=== PATIENT | female | born 1945 | race Caucasian/White ===

== ENCOUNTER → 2021-02-06 11:21 | Outpatient (CLI) | payer MEDICARE, SELFPAY ==
--- NOTE | ~2021-02-06 | XR_ITS ---
EXAMINATION: XR lumbar spine 2-3V DATE: 02/06/2021 11:54 INDICATION: Low back pain TECHNIQUE: Anteroposterior and lateral views of the lumbar spine, and cone-down lateral view of the l umbosacral junction were obtained. COMPARISON: None. FINDINGS: There are 2 mm of anterolisthesis of L3 on L4, 4 mm of anterolisthesis of L4 on L5, and 2 m m of retrolisthesis of L5 on S1. There is moderate loss of intervertebral disc space height at L5-S1. Mild loss of intervertebral disc space height is present throughout the remainder of the lumbar spin e. The vertebral body heights are maintained. There is no fracture. Severe facet osteoarthritis is no tess in the lower lumbar spine. There is calcified atherosclerosis. IMPRESSION: 1. Moderate to severe lumbar spondylosis without acute findings. Reviewed, dictated and finalized at location B.
--- NOTE | ~2021-02-06 | XR_ITS ---
EXAMINATION: XR thoracic spine 3V DATE: 02/06/2021 11:54 INDICATION: Back pain TECHNIQUE: AP, lateral and lateral swimmer's views of the thoracic spine were obtained. COMPARISON: None. FINDINGS: The bones are osteopenic which limits the sensitivity for fracture however none is seen. Th ere is moderate loss of intervertebral disc space height at multiple levels in the mid and upper thor acic spine. The vertebral body heights are maintained. Small degenerative osteophytes project from th e anterior endplates of multiple vertebral bodies. Median sternotomy wires and mediastinal surgical c lips are seen, likely from prior coronary artery bypass grafting. Severe lower cervical spondylosis i s incidentally noted. IMPRESSION: 1. Moderate thoracic spondylosis without acute findings. Reviewed, dictated and finalized at location B.
== END ==
PROVIDERS: PCP Internal Medicine; Visit Provider Internal Medicine
DX: M47.894 Other spondylosis, thoracic region (principal); M47.896 Other spondylosis, lumbar region
CPT/HCPCS: 72072; 72100

== ENCOUNTER 2023-04-15 12:22 | Emergency (ER) | payer MEDICARE, SELFPAY ==
--- NOTE | 2023-04-15 12:23 | ED.FEMALEGU ---
HPI - Female Genitourinary General Chief complaint: Urogenital-Female Stated complaint: Female Urogenital Time Seen by Provider: 04/15/23 12:34 Source: patient, RN notes reviewed and old records reviewed Mode of arrival: ambulatory Limitations: no limitations History of Present Illness HPI Narrative: 77-year-old presents to the [facility] with 2 days of burning with urination. States that she has her pain due to previous shingles right vaginal. States the pain is different also states she has had some frequency. Denies pain. No CVA tenderness. Denies fevers. Denies nausea vomiting Related Data Home Medications Medication Instructions Recorded Confirmed albuterol 90 mcg/actuation aerosol 90 mcg inhalation PRN PRN 04/15/23 04/15/23 inhaler Shortness Of Breath Or Wheezing anastrozole 1 mg tablet 1 mg PO DAILY 04/15/23 04/15/23 aspirin 81 mg tablet,delayed 81 mg PO DAILY 04/15/23 04/15/23 release atenolol 25 mg tablet 25 mg PO DAILY 04/15/23 04/15/23 atorvastatin 40 mg tablet 40 mg PO HS 04/15/23 04/15/23 biotin 5,000 mcg disintegrating 5,000 mcg PO DAILY 04/15/23 04/15/23 tablet budesonide-formoterol HFA 160 2 inh inhalation PRN PRN Shortness 04/15/23 04/15/23 mcg-4.5 mcg/actuation aerosol Of Breath Or Wheezing inhaler (Symbicort) cholecalciferol (vitamin D3) 50 50 mcg PO DAILY 04/15/23 04/15/23 mcg (2,000 unit) capsule (Vitamin D3) clopidogrel 75 mg tablet 75 mg PO DAILY 04/15/23 04/15/23 ezetimibe 10 mg tablet 10 mg PO DAILY 04/15/23 04/15/23 polyethylene glycol 3350 17 gram 17 g PO HS 04/15/23 04/15/23 oral powder packet (Miralax) telmisartan 40 0.5 tablet PO DAILY 04/15/23 04/15/23 mg-hydrochlorothiazide 12.5 mg tablet Allergies Allergy/AdvReac Type Severity Reaction Status Date / Time erythromycin base AdvReac Intermediate Gastrointestinal Verified 04/15/23 12:24 Upset hydrocodone AdvReac Intermediate Gastrointestinal Verified 04/15/23 12:24 Upset oxycodone AdvReac Intermediate Gastrointestinal Verified 04/15/23 12:24 Upset eucalyptus AdvReac Mild Hives Verified 04/15/23 12:24 menthol AdvReac Mild Hives Verified 04/15/23 12:24 mold AdvReac Mild Hives Verified 04/15/23 12:24 Review of Systems Review of Systems: All systems reviewed & are unremarkable except as noted in HPI and below Constitutional: Constitutional: Reports no additional constitutional complaints Eyes: Eyes: Reports no additional eye complaints ENT: Reports system reviewed and no additional complaints, except as documented Cardiovascular: Cardiovascular: Reports no additional cardiovascular complaints, Denies chest pain and Denies dyspnea Respiratory: Respiratory: Reports no additional respiratory complaints, Denies chest congestion, Denies cough and Denies dyspnea Gastrointestinal: Gastrointestinal: Reports no additional gastrointestinal complaints, Denies abdominal pain, Denies nausea and Denies vomiting Genitourinary: Genitourinary: Reports as per HPI Musculoskeletal: Musculoskeletal: Reports no additional musculoskeletal complaints Integumentary/Breasts: Skin/Breast: Reports system reviewed and no additional complaints, except as docu Neurologic: Reports system reviewed and no additional complaints, except as documented Psychiatric: Psychiatric: Reports no additional psychiatric complaints Allergic/Immunologic: Allergic/Immunologic: Reports no additional allergic/immunologic complaints [facility] Past Medical History Medical History History of breast cancer History of colon cancer History of OR (myocardial infarction) Surgical History Surgical History (Updated 04/15/23 @ 18:24 by Leela Donohue APRN) H/O heart artery stent History of colon resection History of heart bypass surgery History of left mastectomy Comments At the time of my signature, I reviewed and agree with the nursing past medical, surgical, social, and family histo
[2023-04-15 12:38] VITALS: BP 152/65; PULSE 58; RESP 16; TEMP 36.4; O2SAT 100
== END 2023-04-15 12:45 | disposition home or self-care (01) ==
PROVIDERS: Emergency Provider Nurse Practitioner; PCP Internal Medicine
DX: N39.0 Urinary tract infection, site not specified (principal); I25.2 Old myocardial infarction; Z85.3 Personal history of malignant neoplasm of breast; I25.10 Atherosclerotic heart disease of native coronary artery without angina pectoris; Z95.5 Presence of coronary angioplasty implant and graft; Z90.12 Acquired absence of left breast and nipple; Z79.82 Long term (current) use of aspirin
CPT/HCPCS: 81003; 87077; 87086; 87088; 87186; 99213; G0463

== ENCOUNTER 2023-12-27 13:50 | Outpatient (CLI) | payer MEDICARE, SELFPAY ==
--- NOTE | ~2023-12-27 | XR_ITS ---
3 VIEWS LUMBAR SPINE Ordering provider: Vidal Roberts, [employer] History: . Facet arthropathy . Comparison: February 06, 2021 FINDINGS: VERTEBRAL BODIES:Slight anterior loss of volume of T12 and L1. No definite visible fracture or sublu xation. DISK SPACES: Narrowing of the disc spaces L1-L2, L2-L3, L3-L4 and L5-S1. Multilevel facet joint disea se. Bilateral sacroiliitis. SOFT TISSUES: Periarticular calcification. IMPRESSION: No acute osseous abnormality lumbar spine. 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 Consider follow up MRI lumbar spine if there is concern for spinal stenosis/neural impingement. Reviewed, dictated and finalized at location A. IMPRESSION: No acute osseous abnormality lumbar spine. 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 Consider follow up MRI lumbar spine if there is concern for spinal stenosis/min ral impingement.
== END 2023-12-27 13:51 ==
LOC: MICIMG 13:54
PROVIDERS: PCP Internal Medicine; Visit Provider Nurse Practitioner Family
DX: M47.897 Other spondylosis, lumbosacral region (principal); M51.36 Other intervertebral disc degeneration, lumbar region; M51.34 Other intervertebral disc degeneration, thoracic region
CPT/HCPCS: 72110

== ENCOUNTER 2024-03-06 10:57 | Outpatient (CLI) | payer MEDICARE, SELFPAY ==
--- NOTE | ~2024-03-06 | MR_ITS ---
EXAMINATION: MR lumbar spine wo con DATE: 03/06/2024 11:34 INDICATION: Low back pain. Radicular pain. TECHNIQUE: Magnetic resonance imaging (MRI) of the lumbar spine was performed without intravenous con trast. Sequences included sagittal T2-weighted FSE, sagittal T2-weighted FS FSE, sagittal T1-weighted FSE, and axial T2-weighted FSE. COMPARISON: Lumbar spine radiograph 12/27/2023 FINDINGS: There is 7 degrees dextrocurvature of lumbar spine. There is 3 mm anterolisthesis of L4 on L5 and 4 mm retrolisthesis of L5 on S1. There is mild chronic anterior wedging of T12 vertebral body. There is mildly decreased disc height at L3-L4 and L4-L5 and severely decreased disc height at L5-S1 . The distal spinal cord signal intensity is normal. The conus medullaris is at L1-L2. There is an 8 mm cyst in left kidney. The following disc levels are specifically discussed: L1-L2: The disc is bulging. There is severe bilateral facet joint osteoarthritis. There is no neural foraminal stenosis. There is mild central canal stenosis. L2-L3: The disc does not extend beyond the endplate margin. There is severe bilateral facet joint ost eoarthritis. There is mild bilateral neural foraminal stenosis. There is no central canal stenosis. L3-L4: The disc is bulging. There is severe bilateral facet joint osteoarthritis. There is mild bilat eral neural foraminal stenosis. There is mild central canal stenosis. L4-L5: The disc is bulging and has an annular fissure. There is severe bilateral facet joint osteoart hritis. There is mild bilateral neural foraminal stenosis. There is mild central canal stenosis. L5-S1: The disc is bulging and has an annular fissure. The disc abuts the bilateral S1 nerve roots. T here is severe bilateral facet joint osteoarthritis. There is mild right and moderate left neural for aminal stenosis. There is mild central canal stenosis. IMPRESSION: 1. Severe lower lumbar spondylosis. Reviewed, dictated and finalized at location A.
== END 2024-03-06 10:58 ==
LOC: MICIMG 10:58
PROVIDERS: PCP Internal Medicine; Visit Provider Nurse Practitioner Family
DX: M47.26 Other spondylosis with radiculopathy, lumbar region (principal)
CPT/HCPCS: 72148